=== PATIENT | male | born 1960 | race Caucasian/White ===

== ENCOUNTER 2024-07-15 00:54 | Emergency (ER) | payer BC, OTHER ==
[~2024-07-15] VITALS: Ht 175.3 cm; Wt 86.2 kg
[2024-07-15] MEDS ORDERED: ONDANSETRON HCL/PF 4 MG/2 ML VIAL ONE ×2 (02:12→03:49)
[2024-07-15] MEDS ORDERED: MORPHINE SULFATE INJ 4 MG/ML DISP.SYRIN ONE ×2 (02:12→03:40)
[2024-07-15] MEDS: IV NS 0.9% 1,000 ML BAG IV ONE (02:15)
[2024-07-15] MEDS: ONDANSETRON HCL/PF 4 MG/2 ML VIAL IVP ONE (02:19)
[2024-07-15 02:25] LABS: BASOPHILS % (AUTO) 0.3 % (0.0-2.0); EOSINOPHILS # (AUTO) 0.2 K/uL (0.0-0.7); EOSINOPHILS % (AUTO) 1.2 % (0.0-6.0); HEMATOCRIT 40 % (39-51); HEMOGLOBIN 13.5 g/dL (13.5-17.5); LYMPHOCYTES # (AUTO) 3.5 K/uL (0.8-4.8); LYMPHOCYTES % (AUTO) 26.9 % (20.0-44.0); MEAN CORPUSCULAR HEMOGLOBIN 30 PG (26.0-33.0); MEAN CORPUSCULAR HGB CONC 34 g/dl (31.0-36.0); MEAN CORPUSCULAR VOLUME 87 fL (80-96); MONOCYTES # (AUTO) 0.8 K/uL (0.1-1.30); MONOCYTES % (AUTO) 5.8 % (2.0-12.0); NEUTROPHILS # (AUTO) 8.6 K/uL (1.8-8.9); NEUTROPHILS % (AUTO) 65.8 % (43.0-81.0); PLATELET COUNT (AUTO) 319 K/uL (150-450); RED BLOOD CELL COUNT(AUTO) 4.58 MIL/uL (4.5-6.0); RED CELL DISTRIBUTION WIDTH 14.2 % (11.5-15.0); WHITE BLOOD COUNT (AUTO) 13.1 K/uL (4.3-11.0)
[2024-07-15] MEDS ORDERED: IOHEXOL-300 100 ML VIAL IV ONE (02:34)
[2024-07-15] MEDS ORDERED: CT SWABBABLE VALVE TRANS SET 1 EA INFUS.SET MC ONE (02:34)
[2024-07-15 02:52] LABS: LACTIC ACID 2.6 mmol/L (0.4-2.0)
[2024-07-15 03:00] LABS: ALBUMIN 3.8 g/dL (3.4-5.0); BILIRUBIN,DIRECT 0.1 mg/dL (0.0-0.2); BILIRUBIN,TOTAL 0.4 mg/dL (0.2-1.0); CALCIUM, SERUM 9.2 mg/dL (8.5-10.1); CREATININE 1.3 mg/dL (0.6-1.3); POTASSIUM 4.5 mmol/L (3.5-5.1); TOTAL PROTEIN, SERUM 7.4 g/dL (6.4-8.2)
[2024-07-15 03:33] LABS: APPEARANCE,URINE CLEAR (CLEAR); BILIRUBIN,URINE 1+ (NEGATIVE); BLOOD, URINE 3+ Ery/uL (NEGATIVE); COLOR,URINE YELLOW (YELLOW); KETONES,URINE NEGATIVE (NEGATIVE); LEUKOCYTE ESTERASE ,URINE NEGATIVE (NEGATIVE); NITRITE, URINE NEGATIVE (NEGATIVE); PH,URINE 5.5 (5.0-8.0); PROTEIN,URINE 1+ mg/dl (NEGATIVE); UGLUCOSE NEGATIVE (NEGATIVE); UROBILINOGEN,URINE 0.2 EU/dL (0.2)
[2024-07-15 03:42] LABS: RBC,URINE 51-80 /HPF (0-2)
[2024-07-15 03:43] LABS: ADD URINE CULTURE YES; BACTERIA,URINE 2+ /HPF (None Seen); WBC,URINE 0-2 /HPF (0-3)
[2024-07-15] MEDS: MORPHINE SULFATE INJ 2 MG/ML DISP.SYRIN IV ONE ×2 (03:45→08:54)
[2024-07-15] MEDS: IV NS 0.9% 500 ML BAG IV ONE (04:00)
[2024-07-15] MEDS: ONDANSETRON HCL/PF - ER 4 MG/2 ML VIAL IV ONE (04:00)
[2024-07-15] MEDS ORDERED: PIPERACI/TAZO 3.375GM/D5W 50ML PB IV ONE (04:31)
[2024-07-15] MEDS: PIPERACILLIN /TAZOBACTAM 3.375 G in IV D5W 50 ML IV ONE (04:49)
[2024-07-15] MEDS ORDERED: LIDOCAINE 2% JEL UROJET 10 ML MM ONE (05:08)
[2024-07-15] MEDS ORDERED: LORAZEPAM INJ 2 MG/ML VIAL ONE ×2 (05:17→08:48)
[2024-07-15] MEDS: LORAZEPAM INJ 2 MG/ML VIAL IV ONE ×2 (05:27→08:53)
[2024-07-15 06:06] LABS: HEMOGLOBIN 11.7 g/dL (13.5-17.5)
[2024-07-15 08:34] VITALS: BP 107/67; TEMP 98.4; O2SAT 100
== END 2024-07-15 09:35 | disposition short-term general hospital (02) ==
LOC: ER 00:56
DX: D78.21 Postprocedural hemorrhage of the spleen following a procedure on the spleen (principal); E87.20 Acidosis, unspecified; I10 Essential (primary) hypertension; Z85.46 Personal history of malignant neoplasm of prostate; Z88.1 Allergy status to other antibiotic agents; Z88.5 Allergy status to narcotic agent; Z90.79 Acquired absence of other genital organ(s); Z95.5 Presence of coronary angioplasty implant and graft
CPT/HCPCS: 99291; 74177; 96365; 96375; 96361; 87426; 99292; 93005; 96376; 85025; 80048; 87040 ×2; 87086; 83605 ×2; 83690; 80076; 81001; 36415; 84484; 82962 ×2; 85027; J2060 ×2; J3490; J2270; J2405 ×3; J2543; J7030; J7040; Q9967; J7060